=== PATIENT | female | born 1995 | race Caucasian/White ===

== ENCOUNTER 2017-04-28 06:08 | Inpatient (IN) | payer OTHER ==
[2017-04-28 06:27] VITALS: BMI 26.1
[2017-04-28] MEDS: Lactated Ringer's 1,000 ML IV SCH ×4 (06:30→23:30)
[2017-04-28] MEDS ORDERED: Oxytocin 30 units/LR 500ML 30 U/500 ML BAG IV ONE ×2 (06:37→13:29)
[2017-04-28] MEDS ORDERED: Oxytocin 30 UNITS in Sodium Chloride 0.9% 500 ML IV ONE (06:45)
[2017-04-28 06:52] LABS: BASO % 0.5 % (0.0-2.0); EOS # 0.1 K/uL (0.0-0.7); EOS % 0.8 % (0.0-4.0); HEMATOCRIT 37.8 % (34.0-47.0); LYMPH # 2.5 K/uL (1.0-4.3); LYMPH % 27.1 % (20.0-40.0); MEAN CELL VOLUME 80.7 fl (81.0-99.0); MEAN CORPUSCULAR HEMOGLOBIN 26.5 pg (27.0-31.0); MEAN CORPUSCULAR HGB CONC 32.9 g/dL (33.0-37.0); MEAN PLATELET VOLUME 8.5 fl (7.2-11.7); MONO # 0.8 K/uL (0.0-0.8); MONO % 8.5 % (0.0-10.0); NEUT # 5.9 K/uL (1.8-7.0); NEUT % 63.1 % (50.0-75.0); RED CELL DISTRIBUTION WIDTH 16.6 % (11.5-14.5); WHITE BLOOD COUNT 9.3 K/uL (4.8-10.8)
[2017-04-28] MEDS ORDERED: ceFAZolin IV 1 gm in Dextrose 1 GM/50 ML BAG IVPB ONE (07:30)
[2017-04-28] MEDS ORDERED: ePHEDrine 50 mg/ml Inj ONE (07:39)
[2017-04-28] MEDS ORDERED: Phenylephrine 10 mg/ml Inj ONE (07:39)
[2017-04-28] MEDS ORDERED: Morphine 1 mg/ml preservative-free Inj(Duramorph) ONE (10:51)
[2017-04-28] MEDS ORDERED: Oxycodone/Acetaminophen 5/325 mg Tab PO PRN (11:58)
[2017-04-28] MEDS ORDERED: Morphine 1 mg/ml preservative-free Inj(Duramorph) IT ONE (13:23)
[2017-04-28] MEDS: Simethicone 80 mg Chewtab PO SCH ×2 (16:07→22:00)
[2017-04-28] MEDS: Oxycodone/Acetaminophen 5/325 mg Tab PO PRN (23:51)
[2017-04-29] MEDS: Simethicone 80 mg Chewtab PO SCH ×4 (05:22→21:59)
[2017-04-29] MEDS: Oxycodone/Acetaminophen 5/325 mg Tab PO PRN ×4 (05:23→22:18)
[2017-04-29 07:42] LABS: HEMATOCRIT 35.3 % (34.0-47.0); MEAN CELL VOLUME 81.2 fl (81.0-99.0); MEAN CORPUSCULAR HEMOGLOBIN 26.2 pg (27.0-31.0); MEAN CORPUSCULAR HGB CONC 32.2 g/dL (33.0-37.0); RED CELL DISTRIBUTION WIDTH 16.7 % (11.5-14.5)
--- NOTE | 2017-04-29 08:12 | OBADHP ---
Datetime: 04/28/2017 07:25 Admit Comment, IP Provider: 21 y/o F at 39 weeks GA presenting for scheduled repeat . JOSÉ MIGUEL 05/05/17 as per LMP 07/21/16 and confirmed with 13-weeks US. Pt reports feeling well with NO com plaints at this moment, NO uterine CTX, no LOF, no vaginal bleeding. +FM. Pt denies headache, visual disturbances, CP, SOB or urinary complaints. OBGYN Hx: , 1st C/S 11/08/13 due to failure to progress. PNC Clinic: [facility] PMHx: denied PSHx: Left arm fracture repair in 2010 and 1 C/S. FHx: NC SHx: No tobacco, alcohol or recreational drugs. 21 y/o F with IUP at 39 weeks GA here for scheduled repeat , Rubella immunity status unkn own. - Admit pt to L_D unit. - Initiate protocol. Case discussed with Dr Jackson, OB operations intelligence superintendent. Luis PGY-1. Extremities - PN: Normal Abdomen - PN: Normal Lungs - PN: Normal Heart - PN: Normal Thyroid - PN: Normal Neurologic - PN: Normal HEENT - PN: Normal General - PN: Normal FHR - Baseline A Provider: 140 Membranes, Provider: Intact Gestation - Est Wks by US: 39.0 Pool Provider: Negative IP Hx Assessment: The History has been Reviewed and is Current IP Chief Complaint: Scheduled Section NICHD Variability Prov Fetus A: Moderate 6-25bpm NICHD Accel Fetus A IP Provider: [id number] FHR Category Provider Fetus A: Category I Dilatation, Provider: 0 Effacement, Provider: 0 EGA AdmitDate IP: 39.0 IP Adm Impression: Term, intrauterine IP Admit Plan: Admit to unit; Initiate Section protocol
--- NOTE | 2017-04-29 09:01 | OBPPN ---
Datetime: 04/29/2017 07:19 PP Pain Prov: Within normal limits PP Nausea Prov: Denies PP Flatus Prov: Yes PP BM Prov: No PP Heart Prov: Normal PP Lungs Prov: Normal PP Abdomen/Uterus Prov: Normal PP Lochia Prov: Normal PP Vulva/Perineum Prov: Normal PP CVA Tenderness Prov: Normal PP Extremities Prov: Normal PP C/S Incision Prov: Normal PP Impression Prov: Normal progression PP Plan Prov: Continue present management PP Progress Note Prov: POD 1 21 y/o now seen and examined at bedside. Pt had an uneventful overnight. Pt reports pain in the area and its controlled with pain medications. Pt reports passing gas per rectum and no BM yet. Has treadwell in place. Pt is tolerating PO diet well.. Denies dizziness, chest pain, dyspn ea, nausea, vomiting or calf pain. Physical Exam: General: A_O, resting comfortably in bed, NAD HEENT: oral mucosa moist. Lungs: CTA B/L, no wheezing, rhonchi or rales CVS: RRR, S1, S2 NL ABD: ND, +BS; Incision: Dressing removed this AM. Carmen intact. Wound looks clean, dry and intact. no indurat ion, erythema or fluctuation. EXT: no edema, no calf tenderness Neuro/psych: AAOX3 Assessement: 21 yo s/p repeat , doing well on POD#1 Plan: D/C IV fluids, advance to regular diet as tolerated. D/C treadwell this morning SCD for DVT prophylaxis Ibuprofen and percocet for pain management Encourage and ambulatory Rubella immunity unknown, MMR prior to d/c. Anticipate discharge to home on 05/01/17. Sultan Rueda, PGY1 The patient was seen with the resident I agree with the note Vital Signs Provider PP: Reviewed; Within Normal Limits
--- NOTE | 2017-04-29 09:04 | OBDS ---
DELIVERY PERSONNEL Delivery Doctor: Zohra Jackson MD Oncology Admin: Lay Saavedra RN Anesthesiologist: Dr Dubose Resident: Dr Smith MATERNAL INFORMATION Delivery Anesthesia: Spinal Medications in Delivery: Ancef 1G Estimated Blood Loss (ml): 800 Placenta Cultured: Yes Maternal Complications: None RN Comments: patient delivered viable infant girl via repeat c section. infant was clamped and broug ht to warmer, examined by Dr Adair. apgars were 9 and 9. brought to nursery per [facility] request. patient remained in stable condition thoroughout surgery and brought to labor and delivery to amelia bridgett. Provider Comments: Repeat low flap transverse section via Pfannenstiel incision. A viable i nfant female with Apgars of 9 and 9 at one and 5 minutes respectively. Normal uterus, normal tubes an d ovaries bilaterally. Estimated blood loss 800 mL 1500 mL lactated Ringer's 100 mL clear urine at the end of procedure no complications LABOR SUMMARY EDC: 05/05/2017 00:00 No. Babies in Womb: 1 LABOR INFORMATION Group B Beta Strep: Negative STAGES OF LABOR Stage 3 hrs: 0 Stage 3 min: 1 CSECTION DELIVERY Primary Indication: Repeat Elective CSection Urgency: Elective CSection Incidence: Repeat Labor: No Labor Elective: Elective CSection Incision: Lower Uterine Transverse BABY A INFORMATION Delivery Date/Time: 04/28/2017 11:20 Method of Delivery: Born in Route : No : N/A Forceps: N/A Vacuum Extraction: N/A Shoulder Dystocia : No SHOULDER DYSTOCIA BABY A Delivery Date/Time: 04/28/2017 11:20 PRESENTATION/POSITION BABY A Presentation: Cephalic PLACENTA INFORMATION BABY A Placenta Delivery Time : 04/28/2017 11:21 Placenta Method of Delivery: Manual Removal Placenta Status: Delivered SCORES BABY A Heart Rate 1 min: >100 bpm Resp Effort 1 min: Good Cry Reflex Irritability 1 min: Cough or Sneeze or Pulls Away Muscle Tone 1 min: Active Motion Color 1 min: Body [place], Extremities Blue Resuscitation Effort 1 min: Tactile Stimulation SCORE 1 MIN: 9 Heart Rate 5 min: >100 bpm Resp Effort 5 min: Good Cry Reflex Irritability 5 min: Cough or Sneeze or Pulls Away Muscle Tone 5 min: Active Motion Color 5 min: Body [place], Extremities Blue Resuscitation Effort 5 min: N/A SCORE 5 MIN: 9 INFANT INFORMATION BABY A Gestational Age at Delivery: 39.0 Gestational Status: Term Outcome : Liveborn Condition : Stable Infant Sex: Female WEIGHT/LENGTH BABY A Infant Birthweight (gms): 2705 Infant Weight (lb): 5 Infant Weight (oz): 15 CORD INFORMATION BABY A No. Cord Vessels: 3 Nuchal Cord : N/A Cord Blood Taken: Yes Suction: Mouth
--- NOTE | 2017-04-29 09:42 | OP ---
PROCEDURE DATE: 04/28/2017 PREOPERATIVE DIAGNOSIS: Repeat section at 39 weeks' gestational age. POSTOPERATIVE DIAGNOSIS: Repeat section at 39 weeks' gestational age. OPERATION PERFORMED: Repeat low-flap transverse section via Pfannenstiel incision. SURGEON: Vinicio aJckson MD. TYPE OF ANESTHESIA: Spinal. OERATIVE FINDINGS: Viable female with Apgars of 9 and 9 at one and five minutes respectively. Normal uterus, normal tubes and ovaries bilaterally. IV FLUID INTAKE: 1500 mL of lactated Ringer's. ESTIMATED BLOOD LOSS: 800 mL. URINE OUTPUT: 100 mL of clear urine at the end of procedure. COMPLICATIONS: None. DESCRIPTION OF PROCEDURE: The patient was taken to the operating room where spinal anesthesia was found to be adequate. The patient was prepped and draped in normal sterile fashion in the dorsal supine position with a leftward tilt. A Pfannenstiel skin incision was made with a scalpel. This was carried down through to the underlying layer of fascia with the scalpel. Midline defect was made in the fascial layer with the scalpel. The fascial incision was then extended bilaterally with curved Dodge scissors. The fascial layer was from the underlying rectus muscles both bluntly and sharply with curved Dodge scissors. The rectus muscles were at the midline. The peritoneum was then identified, tented upward with Naya clamps x2, entered sharply with Metzenbaum scissors. This peritoneal incision was then extended superiorly and inferiorly with good visualization of the urinary bladder. Bladder blade was inserted into the abdomen. The vesicouterine peritoneum was then identified, tented up with Naya clamps x2, entered sharply with Metzenbaum scissors. This peritoneal incision was then extended bilaterally sharply with Metzenbaum scissors. The bladder flap was created digitally. The [place] retractors were placed over the urinary bladder. The uterus was incised with a scalpel. The uterine incision was extended bilaterally bluntly. The infant's head was delivered atraumatically. Nose and mouth were suctioned with bulb suction. The remainder of the infant was delivered without complication. The cord was clamped and cut. The infant was handed off to awaiting pediatricians. The placenta was removed manually. The uterus was cleared of all clots and debris. The uterine incision was repaired with 0 Vicryl in a running, locked fashion. A second layer of the same suture was used to imbricate the first and to obtain excellent hemostasis. Reinspection of the uterine incision proved excellent hemostasis. The abdomen and pelvis were irrigated with copious amounts of warm normal saline. All instruments were removed from the patient. The peritoneal layer was closed with a running stitch of 2-0 chromic. The rectus muscles were reapproximated at the midline with a running stitch of 2-0 chromic. The fascial layer was closed with a running stitch of 0 Vicryl. Subcutaneous tissue was closed with a running stitch of 3-0 plain. The skin was closed with theresa. The patient tolerated the procedure well. All sponge count, lap count and needle counts were correct x2. The patient was given 1 g of Ancef just prior to the beginning of the procedure. There were no complications. The patient was taken to the recovery room in awake and stable condition. Vinicio Jackson MD
[2017-04-29] MEDS ORDERED: Measles, Mumps, and Rubella 0.5 ML VIAL SC ONE (12:00)
[2017-04-30] MEDS: Simethicone 80 mg Chewtab PO SCH (09:50)
[2017-04-30] MEDS: Oxycodone/Acetaminophen 5/325 mg Tab PO PRN ×2 (11:12→16:03)
--- NOTE | 2017-04-30 11:12 | OBDCSUM ---
Datetime: 04/30/2017 11:04 Discharged to, Provider: Home Follow up at, Provider: [facility] Disch Instr Activity: Normal activity; Bedrest; May be up to bathroom; May be up for meals; May Show er Disch Instr Diet: Regular Discharge Instructions, Provider: Routine instructions given Discharge Diagnosis, Provider: Term Delivered Discharge Time: 04/30/2017 11:04 Follow up in weeks, Provider: 7 days Contraception discussed, Prov: No Disch Activity Restrictions: No exercising; No lifting; No driving; Minimize stair-climbing; No sexu al activity; Nothing in vagina - [place], tampons, douche Discharge Comment, Provider: - Continue with daily activities at a slow motion, minimize stairs use - Please f/u with PMD for wound care within 7 days. - Nothing per vagina for 6 weeks.
[2017-04-30 23:02] VITALS: BP 113/84; PULSE 100; RESP 20; TEMP 97.5; O2SAT 98
== END 2017-04-30 17:00 | disposition home or self-care (01) | DRG 371 ==
LOC: UNDOADMIN 06:08 → H.L&D 06:08 → H.OB/GYN 14:30
PROVIDERS: ADMIT Obstetrics & Gynecology Gynecology; ATTEND Obstetrics & Gynecology Gynecology
PROC: 10D00Z1 Extraction of Products of Conception, Low, Open Approach (ICD-10-PCS; principal; 2017-04-28)
PROC: 4A1HXCZ Monitoring of Products of Conception, Cardiac Rate, External Approach (ICD-10-PCS; 2017-04-28)
DX: O34.211 Maternal care for low transverse scar from previous cesarean delivery (principal); N85.8 Other specified noninflammatory disorders of uterus; Z37.0 Single live birth; Z3A.39 39 weeks gestation of pregnancy